=== PATIENT | male | born 1945 | race Caucasian/White ===

== ENCOUNTER → 2019-07-23 12:17 | Outpatient (BNVA) | payer MEDICARE, MEDICAID, SELFPAY | PROVIDERS: Family Provider Nurse Practitioner Family; PCP Nurse Practitioner Family; Visit Provider Internal Medicine Cardiovascular Disease | DX: I10 Essential (primary) hypertension (principal); E78.2 Mixed hyperlipidemia; I25.10 Atherosclerotic heart disease of native coronary artery without angina pectoris; I49.8 Other specified cardiac arrhythmias; Z79.899 Other long term (current) drug therapy | CPT/HCPCS: 80053; 80061; 84443 ==

== ENCOUNTER → 2020-12-08 10:44 | Outpatient (BNVA) | payer MEDICARE, MEDICAID, SELFPAY | PROVIDERS: Family Provider Nurse Practitioner Family; PCP Nurse Practitioner Family; Visit Provider Internal Medicine Cardiovascular Disease | DX: E78.5 Hyperlipidemia, unspecified (principal); I10 Essential (primary) hypertension; N18.9 Chronic kidney disease, unspecified | CPT/HCPCS: 80061; 80076; 84443 ==

== ENCOUNTER → 2021-12-16 12:11 | Outpatient (BNVA) | payer MEDICARE, MEDICAID, SELFPAY | PROVIDERS: Family Provider Nurse Practitioner Family; PCP Nurse Practitioner Family; Visit Provider Internal Medicine Cardiovascular Disease | DX: R06.02 Shortness of breath (principal); I49.9 Cardiac arrhythmia, unspecified; I50.33 Acute on chronic diastolic (congestive) heart failure; R25.2 Cramp and spasm; I10 Essential (primary) hypertension | CPT/HCPCS: 36415; 80048; 83735; 83880; 99214 ==

== ENCOUNTER → 2023-04-05 13:13 | Outpatient (BNVA) | payer MEDICARE, MEDICAID, SELFPAY | PROVIDERS: Family Provider Nurse Practitioner Family; PCP Nurse Practitioner Family; Visit Provider Internal Medicine Cardiovascular Disease | DX: I25.10 Atherosclerotic heart disease of native coronary artery without angina pectoris (principal); Z79.899 Other long term (current) drug therapy; E78.2 Mixed hyperlipidemia; I10 Essential (primary) hypertension; I65.23 Occlusion and stenosis of bilateral carotid arteries; F17.210 Nicotine dependence, cigarettes, uncomplicated; Z95.1 Presence of aortocoronary bypass graft | CPT/HCPCS: 99213 ==

== ENCOUNTER 2023-12-17 10:15 | Emergency (ER) | payer MEDICARE, MEDICAID, SELFPAY ==
[2023-12-17 10:48] VITALS: BP 151/86; PULSE 82; RESP 18; TEMP 36.7; O2SAT 92; BMI 32.1
--- NOTE | 2023-12-17 10:58 | XRR_ITS ---
PROCEDURE INFORMATION: Exam: XR Lumbosacral Spine Exam date and time: 12/17/2023 11:10 AM Age: 78 years old Clinical indication: Low back pain TECHNIQUE: Imaging protocol: Radiologic exam of the lumbosacral spine. Views: 2 or 3 views. COMPARISON: No relevant prior studies available. FINDINGS: Bones/joints: Very mild scoliosis. Partial lumbarization of the S1 segment. Mild grade 1 spondylolisthesis of L5 anteriorly on S1. Minimal degenerative disc disease at all levels. 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 Otherwise, unremarkable. Soft tissues: Otherwise, unremarkable soft tissues. Vasculature: Large amount of arterial calcification. XR/XR lumbar spine 2-3V* [id number] IMPRESSION: No acute findings.
--- NOTE | 2023-12-17 10:58 | ED_ITS ---
HPI - Back Pain/Injury 2 General: Chief Complaint: Back Pain/Injury Stated Complaint: low back pain, side pain Time Seen by Provider: 12/17/23 10:51 Source: patient Mode of arrival: ambulatory Limitations: no limitations History of Present Illness: 78-year-old male states has been having low back pain bilaterally over the last week. He states the pain has been sharp in nature worse to move he states when he is sitting or lying it has resolved he denies any pain currently he denies any injuries denies any bowel or bladder incontinence. Associated symptoms: Deny abdominal pain, chills, fever(s), nausea or vomiting Review of Systems 2 Const: Denies: fever(s), chills, body aches or change in appetite ENMT: Denies: throat pain or dental pain Card: Denies: chest pain Resp: Denies: dyspnea GI: Denies: abdominal pain, nausea, vomiting or diarrhea Musc: Reports: back pain; Denies: neck pain Skin/Breast: Denies: rash Neuro: Denies: headache(s) PFSH ED 2 PFSH: Medical History High risk medication use Coronary artery disease Mr. Butt is known to have atherosclerotic heart disease. He had coronary artery bypass surgery in 2002. His most recent angiogram was done in August of 2011. He was found to have a patent PERALES to the LAD and venous graft to the right coronary artery to the obtuse marginal arteries. He had a high- grade lesion in the ostium of the PLV branch of the right coronary artery and moderate disease in the ostium of the posterior descending artery branch. He underwent percutaneous intervention of these lesions by Dr. Arora . Hypothyroidism Hyperlipidemia COPD (chronic obstructive pulmonary disease) Anxiety Hypertension Carotid stenosis Surgical History Hx of CABG Family History Brother CAD (coronary artery disease) Cancer Diabetes Lung disease Sister CAD (coronary artery disease) Father CAD (coronary artery disease) Other Asthma Denies family history of Clotting disorder Dementia Chronic kidney disease (CKD) Suicide Anesthesia complication Bleeding disorder Stroke Social History Smoking and tobacco/nicotine status: former use of tobacco/nicotine Alcohol intake: never Substance/Drug Use: never Physical Exam 2 Const: COMMON NORMALS: no acute distress, patient oriented x3 and healthy appearing HENMT: COMMON NORMALS: normocephalic and atraumatic HEAD & SCALP: n ormocephalic and atraumatic Eye: COMMON NORMALS: Equal, round and reactive pupils present and EOMs intact bilaterally PUPIL: Yes Equal, round and reactive pupils present Neck/C-Spine: COMMON NORMALS: full ROM and supple Chest: COMMONS NORMALS: normal inspection of the chest and normal palpation of entire chest wall Resp: COMMON NORMALS: normal respiratory effort, No retractions, No use of accessory muscles and clear to auscultation bilaterally AUSCULTATION: clear to auscultation bilaterally Cardio: COMMON NORMALS: regular rate, regular rhythm and No murmurs present (Cardio) RATE: regular rate RHYTHM: regular rhythm GI: COMMON NORMALS: Normal to inspection, nondistended, normoactive bowel sounds present, Soft to palpation, non-tender and no masses PALPATION: Yes Soft to palpation Extremity: COMMON NORMALS: normal to inspection and full ROM Neuro: COMMON NORMALS: patient oriented x3, moves all extremities and no focal motor deficits Psych: COMMON NORMALS: mental status grossly normal, Normal thought process present and cooperative THOUGHT PROCESS: Normal thought process present Skin: COMMON NORMALS: no rashes or lesions noted and no wounds GENERAL SKIN EXAM: no rashes or lesions noted Course 2 Vital Signs: Vital signs: Vital Signs Temperature 98.1 F 12/17/23 10:48 Pulse Rate 71 12/17/23 11:30 Respiratory Rate 16 12/17/23 11:30 Blood Pressure 151/86 12/17/23 11:30 Pulse Oximetry 95 12/17/23 11:30 Oxygen Delivery Me thod Room Air 12/17/23 11:30 MDM - Back Pain/Injury Medical Decision Making Patient presents with back pains likely muscular in nature x-ray blood work here is all normal patient stable for discharge follow-up PCP return if worsening. Medical Records I reviewed the patient's medical records. Labs I reviewed the patient's lab results. 12/17/23 11:23 12/17/23 11:23 Radiology Impressions Lumbar Spine X-Ray 12/17/23 10:58 IMPRESSION: No acute findings. Laboratory Results WBC 5.90 10^3/uL (3.29-11.43) 12/17/23 11: RBC 4.68 10^6/uL (3.85-5.65) 12/17/23 11:23 Hgb 15.10 g/dL (11.27-16.99) 12/17/23 11:23 Hct 47.0 % (37-53) 12/17/23 11:23 MCV 100.4 fl (82-101) 12/17/23 11:23 MCH 32.3 pg (27-33) 12/17/23 11:23 MCHC 32.1 g/dL (30-55) 12/17/23 11:23 RDW 13.0 % (12.1-15.1) 12/17/23 11:23 Plt Count 219 10^3/cmm (157-399) 12/17/23 11:23 MPV 10.1 fL (7.4-10.4) 12/17/23 11:23 Neut % (Auto) 61.3 % 12/17/23 11:23 Lymph % (Auto) 23.7 % 12/17/23 11:23 [place] % (Auto) 11.5 % 12/17/23 11:23 Eos % (Auto) 2.0 % 12/17/23 11:23 Baso % (Auto) 0.7 % 12/17/23 11:23 Neut # (Auto) 3.61 10^3/uL (1.8-7.7) 12/17/23 11:23 Lymph # (Auto) 1.4 10^3/uL (0.8-4.8) 12/17/23 11:23 [place] # (Auto) 0.7 10^3/uL (0.2-0.9) 12/17/23 11:23 Eos # (Auto) 0.1 10^3/uL (0.0-0.8) 12/17/23 11:23 Baso # (Auto) 0.0 10^3/uL (0.0-0.1) 12/17/23 11:23 Nucleated RBC % (auto) 0 % 12/17/23 11:23 Nucleated RBCs # 0.0 /100WBC 12/17/23 11:23 Sodium 141 mmol/L (136-145) 12/17/23 11:23 Potassium 3.9 mmol/L (3.5-5.1) 12/17/23 11:23 Chloride 103 mmol/L (98-107) 12/17/23 11:23 Carbon Dioxide 26 mmol/L (22-29) 12/17/23 11:23 Anion Gap 15.9 (5-19) 12/17/23 11:23 BUN 12 mg/dL (8-23) 12/17/23 11:23 Creatinine 1.1 mg/dL (0.7-1.2) 12/17/23 11:23 GFR Calculation Not Reportable 12/17/23 11:23 Glucose 92 mg/dL (65-115) 12/17/23 11:23 Calculated Osmolality 291 mOsm/kg (285-295) 12/17/23 11:23 Calcium 9.1 mg/dL (8.5-10.5) 12/17/23 11:23 Total Bilirubin 0.6 mg/dL (0.15-1.2) 12/17/23 11:23 AST 17 U/L (0-40) 12/17/23 11:23 ALT 26 U/L (0-41) 12/17/23 11:23 Alkaline Phosphatase 101 U/L (40-130) 12/17/23 11:23 Total Protein 6.8 g/dL (6.6-8.7) 12/17/23 11:23 Albumin 3.9 g/dL (3.5-5.2) 12/17/23 11:23 Globulin 2.9 g/dL (1.3-4.6) 12/17/23 11:23 Lipase 11 U/L (13-60) L 12/17/23 11:23 Urine Color Yellow (Yellow) 12/17/23 11:52 Urine Appearance Clear (CLEAR) 12/17/23 11:52 Urine pH 7 (5-7) 12/17/23 11:52 Ur Specific [place] 1.005 (1.005-1.030) 12/17/23 11:52 Urine Protein Neg (Negative) 12/17/23 11:52 Urine Glucose (UA) Norm (Normal) 12/17/23 11:52 Urine Ketones Negative (Negative) 12/17/23 11:52 Urine Blood Neg (Negative) 06/23/24 11:52 Urine Nitrate Negative (Negative) 12/17/23 11:52 Urine Bilirubin Neg (Negative) 12/17/23 11:52 Urine Urobilinogen Norm mg/dL (Negative) 12/17/23 11:52 Ur Leukocyte Esterase Negative (Negative) 12/17/23 11:52 All radiology interpretation(s) finalized by discharge Discharge Plan Discharge Patient Disposition: Home Clinical Impression: Back pain Condition: Stable Prescriptions: New hydrocodone-acetaminophen 5-325 mg tablet 1 tab PO Q6H PRN (Reason: pain) Qty: 14 0RF ondansetron 4 mg tablet,disintegrating 4 mg PO Q6H PRN (Reason: nausea and vomiting) Qty: 14 0RF No Action docusate sodium [Colace] 100 mg capsule 100 mg PO BID PRN magnesium oxide 400 mg magnesium tablet 400 mg PO BID aspirin [Adult Low Dose Aspirin] 81 mg tablet,delayed release (DR/EC) 81 mg PO QDAY fluticasone propionate [Allergy Relief (fluticasone)] 50 mcg/actuation spray,suspension 2 spray INTRANASAL QDAY omega-3 fatty acids 1,250 mg capsule 1,250 mg PO BID isosorbide mononitrate 120 mg tablet extended release 24 hr 120 mg PO DAILY Qty: 90 3RF nitroglycerin [Nitrostat] 0.4 mg tablet, sublingual 0.4 mg SUBLINGUAL Q5M MDD 3 PRN (Reason: angina) Qty: 25 4RF losartan 100 mg tablet 100 mg PO QDAY Qty: 100 3RF atorvastatin 80 mg tablet 80 mg PO QDAY Qty: 100 3RF hydrochlorothiazide 12.5 mg tablet 12.5 mg PO QAM Qty: 90 3RF amiodarone 200 mg tablet 200 mg PO .COMPLEX Qty: 90 2RF Rx Instructions: Take one tab by mouth daily clopidogrel 75 mg tablet 75 mg PO QDAY Qty: 90 2RF levothyroxine 100 mcg capsule 100 mcg PO QDAY Qty: 90 1RF venlafaxine 75 mg capsule,extended release 24hr 75 mg PO QAM Qty: 90 1RF tamsulosin [Flomax] 0.4 mg capsule 0.4 mg PO QDAY Qty: 90 1RF Discharge Orders: Discharge ED (Routine); Ordered 12/17/23 Ordered By: Victorino Silva Referrals: Iliana Gagnon APN [Family Provider] - 1-3 days Rosa Maria Brown MD [Primary Care Provider] - Discharge Diet: Advance as tolerated Discharge Activity: Resume usual activity Patient Instructions: Back Pain (ED) Coding Level of Care Code ED [employer] for Denzel Philippe
[2023-12-17] MEDS: dexamethasone 10 mg/mL INJ IM (11:26)
[2023-12-17] MEDS: ketorolac 30 mg/mL INJ IM (11:27)
[2023-12-17 11:29] LABS: Basophils % 0.7 %; Eosinophils # 0.1 10^3/uL (0.0-0.8); Lymphocytes # 1.4 10^3/uL (0.8-4.8); Lymphocytes % 23.7 %; Mean Corpuscular HGB Conc 32.1 g/dL (30-55); Mean Corpuscular Hemoglobin 32.3 pg (27-33); Mean Corpuscular Volume 100.4 fl (82-101); Mean Platelet Volume 10.1 fL (7.4-10.4); Monocytes # 0.7 10^3/uL (0.2-0.9); Monocytes % 11.5 %; Neutrophils # 3.61 10^3/uL (1.8-7.7); Neutrophils % 61.3 %; Nucleated Red Blood Cells % 0 %; Platelet Count 219 10^3/cmm (157-399); Red Blood Count 4.68 10^6/uL (3.85-5.65)
[2023-12-17 11:30] VITALS: BP 151/86; PULSE 71; RESP 16; O2SAT 95
[2023-12-17 11:45] LABS: Alanine Aminotransferase 26 U/L (0-41); Albumin Level 3.9 g/dL (3.5-5.2); Alkaline Phosphatase 101 U/L (40-130); Anion Gap 15.9 (5-19); Aspartate Amino Transferase 17 U/L (0-40); Blood Urea Nitrogen 12 mg/dL (8-23); Calcium 9.1 mg/dL (8.5-10.5); Carbon Dioxide 26 mmol/L (22-29); Chloride 103 mmol/L (98-107); Creatinine Clr Calc Pharmacy 64.0996; Globulin 2.9 g/dL (1.3-4.6); Glucose 92 mg/dL (65-115); Lipase 11 U/L (13-60); Osmolality Calculated 291 mOsm/kg (285-295); Potassium 3.9 mmol/L (3.5-5.1); Sodium 141 mmol/L (136-145); Total Bilirubin 0.6 mg/dL (0.15-1.2); Total Protein 6.8 g/dL (6.6-8.7)
[2023-12-17 12:09] LABS: Add Urine Microscopic? NO; Charge for UA Resulting for Rev
[2023-12-17 12:14] LABS: Urine Appearance Clear (CLEAR); Urine Color Yellow (Yellow); pH Urine 7 (5-7)
[2023-12-17 12:15] LABS: Bilirubin Urine Neg (Negative); Blood Urine Neg (Negative); Glucose Urine UA Norm (Normal); Ketones Urine Negative (Negative); Leukocyte Esterase Urine Negative (Negative); Nitrate Urine Negative (Negative); Protein Urine Neg (Negative); Specific Gravity, Urine 1.005 (1.005-1.030); Urobilinogen Urine Norm (Negative)
[2023-12-17 12:38] VITALS: BP 146/73; PULSE 77; RESP 14; O2SAT 95
[2023-12-17 12:39] VITALS: BP 146/73; PULSE 77; RESP 14; TEMP 36.7; O2SAT 95
== END 2023-12-17 12:40 | disposition home or self-care (01) ==
PROVIDERS: Emergency Provider Emergency Medicine; Family Provider Nurse Practitioner Family; PCP Family Medicine
DX: M54.50 Low back pain, unspecified (principal); Z79.02 Long term (current) use of antithrombotics/antiplatelets; Z79.82 Long term (current) use of aspirin; Z87.891 Personal history of nicotine dependence; I25.10 Atherosclerotic heart disease of native coronary artery without angina pectoris; E78.5 Hyperlipidemia, unspecified; J44.9 Chronic obstructive pulmonary disease, unspecified; I10 Essential (primary) hypertension; Z95.1 Presence of aortocoronary bypass graft
CPT/HCPCS: 36415; 72100; 80053; 81003; 83690; 85025; 96372; 99284; J1100; J1885

== ENCOUNTER → 2024-07-23 11:33 | Outpatient (BNVA) | payer MEDICARE, MEDICAID, SELFPAY | PROVIDERS: Family Provider Nurse Practitioner Family; PCP Family Medicine; Visit Provider Nurse Practitioner Family | DX: I10 Essential (primary) hypertension (principal); I65.23 Occlusion and stenosis of bilateral carotid arteries | CPT/HCPCS: 80053; 80061; 84443; 85025 ==

== ENCOUNTER → 2025-04-17 10:55 | Outpatient (BNVA) | payer MEDICARE, MEDICAID, SELFPAY | PROVIDERS: Visit Provider Nurse Practitioner Family | DX: R05.9 Cough, unspecified (principal) | CPT/HCPCS: 87400; 87426 ==